=== PATIENT | female | born 1975 | race Caucasian/White ===

== ENCOUNTER 2017-01-26 07:57 | Observation (INO) | payer OTHER ==
[2017-01-26 07:58] VITALS: BMI 37.2
[2017-01-26 08:26] VITALS: BP 121/74; PULSE 73; RESP 18; TEMP 98.2; O2SAT 99
--- NOTE | 2017-01-26 08:44 | ED PDOC ---
HPI: Abdomen Time Seen by Provider: 01/26/17 08:26 Chief Complaint (Nursing): Abdominal Pain Chief Complaint (Provider): Abdominal Pain History Per: Patient History/Exam Limitations: no limitations Onset/Duration Of Symptoms: Hrs Current Symptoms Are (Timing): Still Present Severity: Moderate Pain Scale Rating Of: 8 Location Of Pain/Discomfort: Suprapubic Quality Of Discomfort: "Pain" Associated Symptoms: Fever, Urinary Symptoms. denies: Nausea, Vomiting Exacerbating Factors: None Alleviating Factors: None Additional Complaint(s): Patient is a 41 year old female who presents to ED for abdominal pain that began last night. Pain is described as lower abdominal, 8/10 and constant. Notes pain is associated with urinary frequency and fever Tmax 100.2 for 3 days. Patient reports she was last sexually active 1 month ago, denies vaginal discharge or bleeding. Past Medical History Reviewed: Historical Data, Nursing Documentation, Vital Signs Vital Signs: Last Vital Signs Temp 98.2 F 01/26/17 08:22 Pulse 73 01/26/17 08:22 Resp 18 01/26/17 08:22 BP 121/74 01/26/17 08:22 Pulse Ox 99 01/26/17 13:37 - Medical History PMH: Anemia, Pulmonary Embolism Denies: Chronic Kidney Disease - Surgical History Surgical History: No Surg Hx - Family History Family History: States: Unknown Family Hx - Living Arrangements Living Arrangements: With Family - Home Medications Home Medications: Ambulatory Orders Medication Instructions Recorded Aspirin [Low Dose Aspirin EC] 81 mg PO DAILY 07/12/16 Cholecalciferol [Vitamin D 1000 IU] 50,000 iu PO DAILY 07/12/16 Diclofenac Sodium [Voltaren] 100 gm TP 07/12/16 Ferrous Gluconate [Fergon] 324 mg PO 07/12/16 Folic Acid 1 mg PO DAILY 07/12/16 Docusate [Colace] 1 tab PO BID #40 cap 01/26/17 Naproxen [Naprosyn] 1 tab PO BID PRN #25 tab 01/26/17 - Allergies Allergies/Adverse Reactions: Allergies Allergy/AdvReac Type Severity Reaction Status Date / Time morphine Allergy DIZZINESS Verified 05/27/16 19:31 Review of Systems ROS Statement: Except As Marked, All Systems Reviewed And Found Negative Constitutional: Positive for: Fever, Chills. Negative for: Weakness Cardiovascular: Negative for: Chest Pain Respiratory: Negative for: Shortness of Breath Gastrointestinal: Positive for: Abdominal Pain. Negative for: Nausea, Vomiting , Diarrhea Genitourinary Female: Positive for: Frequency. Negative for: Dysuria, Hematuria Musculoskeletal: Positive for: Back Pain Skin: Negative for: Rash Neurological: Negative for: Weakness Physical Exam - Reviewed Nursing Documentation Reviewed: Yes Vital Signs Reviewed: Yes - Physical Exam Appears: Positive for: Non-toxic, No Acute Distress Skin: Positive for: Normal Color, Warm Eye Exam: Positive for: Normal appearance Neck: Positive for: Normal, Painless ROM Cardiovascular/Chest: Positive for: Regular Rate, Rhythm. Negative for: Murmur Respiratory: Positive for: Normal Breath Sounds. Negative for: Respiratory Distress Gastrointestinal/Abdominal: Positive for: Soft, Tenderness (LLQ). Negative for : Distended, Guarding, Rebound Back: Positive for: Normal Inspection, L CVA Tenderness. Negative for: R CVA Tenderness Extremity: Positive for: Normal ROM Neurologic/Psych: Positive for: Alert, Oriented - Laboratory Results Result Diagrams: 01/26/17 08:50 01/26/17 08:50 - ECG O2 Sat by Pulse Oximetry: 99 (RA) Pulse Ox Interpretation: Normal Medical Decision Making Medical Decision Making: Time: 0840 Initial impression: Abdominal pain r/o UTI Initial plan: -- Amylase -- CMP -- Lipase -- CBC -- NSF -- U/A Scribe Attestation: Documented by Marissa Robert acting as a scribe for Williams De Guzman MD MD Scribe Attestation: All medical record entries made by the Scribe were at my direction and personally dictated by me. I have reviewed the chart and agree that the record accurately reflects my personal performance of the history, physical exam, medical decision making, and the department course for this patient. I have also personally directed, reviewed, and agree with the discharge instructions and disposition. ED OBSERVATION Discharge: Yes Date of observation admission: 01/26/17 Time of observation admission: 10:02 - Observation admission statement Patient is being placed in observation because:: Patient is still symptomatic. - Goals of Observation Goals of observation are:: Improvement of symptoms. - Progress Note Progress Note: 01/26/17 12:53 Patient has returned from CT scan. Awaiting reading by radiology. 01/26/17 13:36 CT shows b/l ovarian cysts. Will d/c on nsaids Disposition - Clinical Impression Clinical Impression: Ovarian cyst - Patient ED Disposition Is Patient to be Admitted: No Counseled Patient/Family Regarding: Studies Performed, Diagnosis, Need For Followup, Rx Given - Disposition Disposition Time: 13:31 Condition: IMPROVED
[2017-01-26] MEDS ORDERED: Sodium Chloride 0.9% 1,000 ML IV SCH (08:45)
[2017-01-26 09:10] LABS: BASO % 0.6 % (0.0-2.0); EOS # 0.1 K/uL (0.0-0.7); EOS % 1.2 % (0.0-4.0); HEMATOCRIT 34.1 % (34.0-47.0); LYMPH # 1.6 K/uL (1.0-4.3); LYMPH % 27.1 % (20.0-40.0); MEAN CELL VOLUME 81.2 fl (81.0-99.0); MEAN CORPUSCULAR HGB CONC 33.2 g/dL (33.0-37.0); MEAN PLATELET VOLUME 9.4 fl (7.2-11.7); MONO # 0.5 K/uL (0.0-0.8); MONO % 9.2 % (0.0-10.0); NEUT # 3.7 K/uL (1.8-7.0); NEUT % 61.9 % (50.0-75.0); RED CELL DISTRIBUTION WIDTH 15.3 % (11.5-14.5); WHITE BLOOD COUNT 5.9 K/uL (4.8-10.8)
[2017-01-26 09:12] LABS: RBC URINE 2 /hpf (0-3); URINE BILIRUBIN NEGATIVE (NEGATIVE); URINE BLOOD NEGATIVE (NEGATIVE); URINE COLOR STRAW (YELLOW); URINE GLUCOSE (UA) NEG (Normal); URINE KETONE NEGATIVE (NEGATIVE); URINE LEUKOCYTE ESTERASE NEG Leu/uL (Negative); URINE PROTEIN NEGATIVE (NEGATIVE); URINE UROBILINOGEN 0.2-1.0 mg/dL (0.2-1.0); WBC URINE < 1 /hpf (0-5)
[2017-01-26 09:20] LABS: ALB/GLOB RATIO 1.4 (1.0-2.1); ALKALINE PHOSPHATASE 41 U/L (38-126); ALT/SGPT 32 U/L (9-52); AMYLASE 63 U/L (30-110); AST/SGOT 33 U/L (14-36); BILIRUBIN,TOTAL 0.6 mg/dl (0.2-1.3); BLOOD UREA NITROGEN 14 mg/dl (7-17); CALCIUM 9.4 mg/dL (8.4-10.2); CARBON DIOXIDE 26 mmol/L (22-30); CHLORIDE 106 mmol/L (98-107); GFR AFRICAN-AMERICAN > 60; GLUCOSE,RANDOM 85 mg/dL (65-105); LIPASE 105 U/L (23-300); POTASSIUM 4.3 MMOL/L (3.6-5.0); SODIUM 140 mmol/l (132-148); TOTAL PROTEIN 6.9 G/DL (6.3-8.2)
[2017-01-26] MEDS ORDERED: Iohexol 240 (50 ml) PO ONE (10:05)
--- NOTE | 2017-01-26 13:11 | CT ---
PROCEDURE: CT Abdomen and Pelvis with oral and IV contrast. HISTORY: Patient is c/o abdominal pain COMPARISON: CT abdomen and pelvis without oral or IV contrast performed 04/22/14 TECHNIQUE: Contiguous axial images of the abdomen and pelvis. Oral and IV contrast was administered. Coronal and Sagittal reformats generated and reviewed. Contrast dose: 95 mL Omnipaque 300 Radiation dose: Total exam DLP = 1088.52 mGy-cm. This CT exam was performed using one or more of the following dose reduction techniques: Automated exposure control, adjustment of the mA and/or kV according to patient size, and/or use of iterative reconstruction technique. FINDINGS: LOWER THORAX: No visible consolidation, pleural effusion, or pneumothorax. Punctate calcified granuloma, right lung base. LIVER: Hypoattenuation of the liver compatible with hepatic steatosis. GALLBLADDER AND BILE DUCTS: Unremarkable. PANCREAS: Unremarkable. SPLEEN: Unremarkable. ADRENALS: Unremarkable. KIDNEYS AND URETERS: The kidneys enhance symmetrically. No hydronephrosis or obstructing renal calculus. BLADDER: The urinary bladder appears unremarkable. REPRODUCTIVE: Uterus is present. Probable bilateral ovarian cysts. APPENDIX: The appendix appears within normal limits of caliber. No secondary signs of acute appendicitis. BOWEL: The stomach is nondistended. The bowel loops appear within normal limits of caliber without evidence of intestinal obstruction. Mild to moderate constipation. PERITONEUM: No significant free fluid. No definite free air. LYMPH NODES: No bulky lymphadenopathy identified. VASCULATURE: No aortic aneurysm. BONES: No acute osseous abnormality is detected. OTHER FINDINGS: None. IMPRESSION: Hepatic steatosis. Mild to moderate constipation. Probable small bilateral ovarian cysts. This may be further assessed with pelvic ultrasound if indicated.
== END 2017-01-26 13:46 | disposition home or self-care (01) ==
LOC: SUPCPDRO 07:57 → H.ER 07:57 → H.EROBSV 10:10
PROVIDERS: ADMIT Emergency Medicine; ATTEND Emergency Medicine
DX: N83.202 Unspecified ovarian cyst, left side (principal); N83.201 Unspecified ovarian cyst, right side; Z86.711 Personal history of pulmonary embolism; Z79.82 Long term (current) use of aspirin; Z88.6 Allergy status to analgesic agent

== ENCOUNTER 2017-04-06 07:53 | Inpatient (IN) | payer OTHER ==
[2017-04-06 07:53] VITALS: BMI 37.2
[2017-04-06] MEDS ORDERED: Iohexol 300 100 ML IJ ONE (08:48)
[2017-04-06] MEDS ORDERED: Sodium Chloride 0.9% 50 ML IV ONE (08:49)
[2017-04-06] MEDS ORDERED: Alum-Mag Hydrox-Simethicone Susp (30 mL) PO ONE (08:52)
--- NOTE | 2017-04-06 08:53 | ED PDOC ---
HPI: Chest Pain Time Seen by Provider: 04/06/17 07:57 Chief Complaint (Nursing): Chest Pain Chief Complaint (Provider): Chest Pain History Per: Patient History/Exam Limitations: no limitations Onset/Duration Of Symptoms: Days (x2 days) Current Symptoms Are (Timing): Still Present Additional Complaint(s): 41 y/o female with a past medical history of pulmonary embolism, hypercholesterolemia, and diabetes (pre-diabetic) who presents to the emergency department with a complaint of a constant discomfort of chest pain x2 days. Describes the sensation as something being "stuck" inside her chest. Reports pain increases when pressing on her chest and swallowing. Admits she is able swallow but associated with pain when she eats, drinks, or breathes. Denies cough, fever, vomiting, choking, burning sensation or pain of the throat, or leg pain. Of note, patient is currently taking Aspirin 81 mg daily after after a varicose surgery removal which caused coagulates in her lungs. PMD: Dr. Ten Walters MD Past Medical History Reviewed: Historical Data, Nursing Documentation, Vital Signs Vital Signs: Last Vital Signs Temp 98.0 F 04/07/17 13:05 Pulse 74 04/07/17 13:05 Resp 20 04/07/17 13:05 BP 101/62 04/07/17 13:05 Pulse Ox 99 04/07/17 13:05 - Medical History PMH: Anemia, Diabetes ("Pre-Diabetic" (Not taking medications)), Pulmonary Embolism Denies: Chronic Kidney Disease - Surgical History Other surgeries: Removal of varicose veins - Family History Family History: States: Unknown Family Hx - Home Medications Home Medications: Ambulatory Orders Medication Instructions Recorded Aspirin [Low Dose Aspirin EC] 81 mg PO DAILY 07/12/16 Ergocalciferol (Vitamin D2) 50,000 unit PO FR 04/06/17 [Vitamin D2] - Allergies Allergies/Adverse Reactions: Allergies Allergy/AdvReac Type Severity Reaction Status Date / Time morphine Allergy DIZZINESS Verified 05/27/16 19:31 VERONICA Risk Score for UA/NSTEMI - VERONICA Risk Score Age > 64: NO 3 or more CAD Risk Factors: NO Known CAD (Stenosis greater than 50%): NO Aspirin use in past 7 days: NO Severe Angina: NO EKG ST changes greater than 0.5mm: NO Positive Cardiac Marker: NO VERONICA Score: 0 Risk %: 5% Wells Criteria for PE - Wells Criteria for Pulmonary Embolism Clinical Signs and Symptoms of DVT: No P.E is #1 Diagnosis, or Equally Likely: No Heart Rate >100: No Immobilization at least 3 days;Surgery previous 4 weeks: No Previous, objectively diagnosed PE or DVT: No Hemoptysis: No Malignancy w/treatment within 6 months, or palliative: No Total Score: 0 Review of Systems ROS Statement: Except As Marked, All Systems Reviewed And Found Negative Constitutional: Negative for: Fever ENT: Positive for: Other (Able to swallow but associated with pain). Negative for: Throat Pain (or burning sensation. No choking.) Cardiovascular: Positive for: Chest Pain (Hurts when chest wall in pressed, with swallowing, and breaths. ) Respiratory: Negative for: Cough Gastrointestinal: Negative for: Vomiting Physical Exam - Reviewed Nursing Documentation Reviewed: Yes Vital Signs Reviewed: Yes - Physical Exam Appears: Positive for: Non-toxic, No Acute Distress Head Exam: Positive for: ATRAUMATIC, NORMAL INSPECTION, NORMOCEPHALIC Skin: Positive for: Normal Color, Warm, Dry ENT: Positive for: Normal ENT Inspection. Negative for: Pharyngeal Erythema Neck: Positive for: Normal, Supple Cardiovascular/Chest: Positive for: Regular Rate, Rhythm, Other (Chest wall tenderness along the lower sternal region). Negative for: Chest Non Tender, Murmur Respiratory: Positive for: Normal Breath Sounds. Negative for: Accessory Muscle Use, Respiratory Distress Gastrointestinal/Abdominal: Positive for: Normal Exam, Soft. Negative for: Tenderness Extremity: Positive for: Normal ROM. Negative for: Pedal Edema Neurologic/Psych: Positive for: Alert, Oriented - Laboratory Results Result Diagrams: 04/06/17 08:49 04/06/17 08:49 - ECG ECG Rhythm: Positive for: Normal QRS, Normal ST Segment, Sinus Rhythm (Rate of 67 bpm). Negative for: ST/T Changes O2 Sat by Pulse Oximetry: 100 (RA) Pulse Ox Interpretation: Normal Medical Decision Making Medical Decision Making: Time: 08:30 Initial impression: Chest pain. Differential includes ACS and PE. Most likely esophagitis from aspirin use. Initial plan: --Angio Chest PE CT --EKG --BMP --Troponin I --CBC w. diff --PTT and Prothrombin --Reevaluation Time: 08:52 --Aluminum Hydroxide 30 ml PO --Pepcid 20 mg IVP --Lidocaine 2% 15 ml PO Time: 11:18 --Chest CT FINDINGS: PULMONARY ARTERIES: The study is limited due to suboptimal a opacification of the pulmonary circulation. Visualized pulmonary trunk, right and left main, lobar, segmental and proximal subsegmental branches of the pulmonary arteries are well opacified with no definitive filling defects seen to suggest acute pulmonary embolus. Pulmonary trunk measures approximately 2.4 cm. AORTA: No acute findings. No thoracic aortic aneurysm ; ascending thoracic aorta measures approximately 2.83 cm and descending thoracic aorta measures approximately 2.47 cm. . LUNGS: Unremarkable. No nodule, mass or pulmonary consolidation. Central airways are midline and patent. No definitive endobronchial lesion seen. PLEURAL SPACES: Unremarkable. No effusion or pneuomothorax. HEART: Heart mildly enlarged. No significant pericardial effusion. LYMPH NODES: No lymphadenopathy. BONES, CHEST WALL: Unremarkable. No fracture or destructive lesion OTHER FINDINGS: Unremarkable. IMPRESSION: No evidence of acute central pulmonary embolus seen on this limited study as above. Mild cardiomegaly. Time: 12:19 Admit to hospital routine: On Observation in Telemetry for Chest pain after discussed with Dr. Ten Walters MD Scribe Attestation: Documented by Deanna Millard, acting as a scribe for Chandler Garcia MD. Provider Scribe Attestation: All medical record entries made by the Scribe were at my direction and personally dictated by me. I have reviewed the chart and agree that the record accurately reflects my personal performance of the history, physical exam, medical decision making, and the department course for this patient. I have also personally directed, reviewed, and agree with the discharge instructions and disposition. Disposition - Clinical Impression Clinical Impression: Chest pain - Patient ED Disposition Is Patient to be Admitted: Yes Discussed With : Ten Walters Doctor Will See Patient In The: Hospital Counseled Patient/Family Regarding: Studies Performed, Diagnosis - Disposition Disposition Time: 12:19 Condition: FAIR - Pt Status Changed To: Hospital Disposition Of: Observation - POA Present On Arrival: None
[2017-04-06] MEDS ORDERED: Iodixanol 320 MG/ML 100 ML BOTTLE IV ONE (08:54)
[2017-04-06] MEDS ORDERED: Alum-Mag Hydrox-Simethicone Susp (30 mL) ONE (09:15)
[2017-04-06 09:28] LABS: BASO % 0.7 % (0.0-2.0); EOS # 0.1 K/uL (0.0-0.7); HEMATOCRIT 35.5 % (34.0-47.0); LYMPH # 1.8 K/uL (1.0-4.3); LYMPH % 28.4 % (20.0-40.0); MEAN CELL VOLUME 81.8 fl (81.0-99.0); MEAN CORPUSCULAR HEMOGLOBIN 26.3 pg (27.0-31.0); MEAN CORPUSCULAR HGB CONC 32.1 g/dL (33.0-37.0); MEAN PLATELET VOLUME 9.4 fl (7.2-11.7); MONO # 0.5 K/uL (0.0-0.8); MONO % 8.4 % (0.0-10.0); NEUT # 3.8 K/uL (1.8-7.0); NEUT % 60.5 % (50.0-75.0); NRBC % 0.1 % (0.0-0.0); RED CELL DISTRIBUTION WIDTH 15.6 % (11.5-14.5); WHITE BLOOD COUNT 6.2 K/uL (4.8-10.8)
[2017-04-06 09:37] LABS: BLOOD UREA NITROGEN 9 mg/dl (7-17); CALCIUM 8.9 mg/dL (8.4-10.2); CARBON DIOXIDE 22 mmol/L (22-30); CHLORIDE 109 mmol/L (98-107); GFR AFRICAN-AMERICAN > 60; GLUCOSE,RANDOM 90 mg/dL (65-105); POTASSIUM 4.7 MMOL/L (3.6-5.0); SODIUM 140 mmol/l (132-148)
[2017-04-06 09:49] LABS: PARTIAL THROMBOPLASTIN TIME 28.9 Seconds (25.6-37.1)
--- NOTE | 2017-04-06 11:40 | CT ---
PROCEDURE: CT Chest with contrast (Pulmonary Angiogram) HISTORY: chest pain COMPARISON: None available. TECHNIQUE: Contiguous helical/transaxial computed tomography images were obtained of the chest in the pulmonary arterial phase of enhancement. Coronal and sagittal reformatted images were created and reviewed. Intravenous contrast dose: 95 cc Visipaque 320 contrast material Radiation dose: Total exam DLP = 384.49 mGy-cm. This CT exam was performed using one or more of the following dose reduction techniques: Automated exposure control, adjustment of the mA and/or kV according to patient size, and/or use of iterative reconstruction technique. . FINDINGS: PULMONARY ARTERIES: The study is limited due to suboptimal a opacification of the pulmonary circulation. Visualized pulmonary trunk, right and left main, lobar, segmental and proximal subsegmental branches of the pulmonary arteries are well opacified with no definitive filling defects seen to suggest acute pulmonary embolus. Pulmonary trunk measures approximately 2.4 cm. AORTA: No acute findings. No thoracic aortic aneurysm ; ascending thoracic aorta measures approximately 2.83 cm and descending thoracic aorta measures approximately 2.47 cm. . LUNGS: Unremarkable. No nodule, mass or pulmonary consolidation. Central airways are midline and patent. No definitive endobronchial lesion seen. PLEURAL SPACES: Unremarkable. No effusion or pneuomothorax. HEART: Heart mildly enlarged. No significant pericardial effusion. LYMPH NODES: No lymphadenopathy. BONES, CHEST WALL: Unremarkable. No fracture or destructive lesion OTHER FINDINGS: Unremarkable. IMPRESSION: No evidence of acute central pulmonary embolus seen on this limited study as above. Mild cardiomegaly.
[2017-04-06] MEDS: Enoxaparin 40 mg Syringe SC SCH (16:10)
[2017-04-06] MEDS: Ergocalciferol 50,000 Intl Units Cap PO SCH ×2 (17:10→17:15)
--- NOTE | 2017-04-06 18:20 | CP.PCM.CON ---
History of Present Illness - History of Present Illness History of Present Illness: Consultation for evaluation of chest pain HPI: 41-year-old female with past medical history significant for prediabetes hyperlipidemia pulmonary embolism who presented to the ER with complaints of substernal sharp epigastric discomfort described as sensation of something stuck in her throat. According to the patient she described the pain got worse after swallowing. Patient was able to eat and drink. Denied any cough fevers nausea vomiting symptoms are worse on swallowing as if she had a heartburn sensation. Denies having any dyspnea associated diaphoresis or shortness of breath. Patient has been on baby aspirin after varicose vein removal. She had undergone a stress test and echocardiogram recently in the last year by Dr. Cueto who is her promotion writer. Both testing showed normal results. Review of Systems - Review of Systems All systems: reviewed and no additional remarkable complaints except - Constitutional Constitutional: As Per HPI - EENT Eyes: As Per HPI Ears: As Per HPI Nose/Mouth/Throat: As Per HPI - Breasts Breasts: As Per HPI - Cardiovascular Cardiovascular: As Per HPI, Chest Pain - Respiratory Respiratory: As Per HPI - Gastrointestinal Gastrointestinal: As Per HPI, Dyspepsia, Dysphagia - Genitourinary Genitourinary: As Per HPI - Menstruation Menstruation: As Per HPI - Musculoskeletal Musculoskeletal: As Per HPI - Integumentary Integumentary: As Per HPI - Neurological Neurological: As Per HPI - Psychiatric Psychiatric: As Per HPI - Endocrine Endocrine: As Per HPI - Hematologic/Lymphatic Hematologic: As Per HPI Past Patient History - Infectious Disease Hx of Infectious Diseases: None - Past Medical History & Family History Past Medical History?: No Pertinent Family History: +ve for HTN - Past Social History Smoking Status: Never Smoked - CARDIAC Hx Cardiac Disorders: Yes - PULMONARY Hx Pulmonary Embolism: Yes - NEUROLOGICAL Hx Neurological Disorder: No - HEENT Hx HEENT Problems: No - RENAL Hx Chronic Kidney Disease: No - ENDOCRINE/METABOLIC Hx Endocrine Disorders: No - HEMATOLOGICAL/ONCOLOGICAL Hx Anemia: Yes - INTEGUMENTARY Hx Dermatological Problems: No - MUSCULOSKELETAL/RHEUMATOLOGICAL Hx Falls: No - GASTROINTESTINAL Other/Comment: gastritis - PSYCHIATRIC Hx Substance Use: No - SURGICAL HISTORY Hx Section: Yes (x 3) - ANESTHESIA Hx Anesthesia: Yes Hx Anesthesia Reactions: No Hx Malignant Hyperthermia: No Meds Allergies/Adverse Reactions: Allergies Allergy/AdvReac Type Severity Reaction Status Date / Time morphine Allergy DIZZINESS Verified 05/27/16 19:31 - Medications Medications: Current Medications Enoxaparin Sodium (Lovenox) 40 mg SC DAILY JOANNE PRN Reason: Protocol Last Admin: 04/06/17 16:10 Dose: 40 mg Ergocalciferol (Drisdol 50,000 Intl Units Cap) 1 cap PO FR [facility] Last Admin: 04/06/17 17:15 Dose: Not Given Physical Exam - Constitutional Appears: Well - Head Exam Head Exam: ATRAUMATIC, NORMAL INSPECTION, NORMOCEPHALIC - Eye Exam Eye Exam: EOMI, Normal appearance, PERRL Pupil Exam: NORMAL ACCOMODATION, PERRL - ENT Exam ENT Exam: Mucous Membranes Moist, Normal Exam - Neck Exam Neck exam: Positive for: Normal Inspection - Respiratory Exam Respiratory Exam: Clear to Auscultation Bilateral, NORMAL BREATHING PATTERN - Cardiovascular Exam Cardiovascular Exam: REGULAR RHYTHM, RRR, +S1, +S2, Systolic Murmur - GI/Abdominal Exam GI & Abdominal Exam: Normal Bowel Sounds, Soft. absent: Tenderness - Extremities Exam Extremities exam: Positive for: normal inspection - Back Exam Back exam: NORMAL INSPECTION - Neurological Exam Neurological exam: Alert, CN II-XII Intact, Oriented x3, Reflexes Normal - Psychiatric Exam Psychiatric exam: Normal Affect, Normal Mood - Skin Skin Exam: Dry, Intact, Normal Color, Warm Results - Vital Signs Recent Vital Signs: Last Vital Signs Temp 98.7 F 04/06/17 16:23 Pulse 67 04/06/17 16:23 Resp 16 04/06/17 16:57 BP 108/72 04/06/17 16:23 Pulse Ox 99 04/06/17 16:23 - Labs Result Diagrams: 04/06/17 08:49 04/06/17 08:49 Assessment & Plan (1) Chest pain Assessment and Plan: etiology most likely GI related CHIARA serial TnI x 3 no further cardiac w/u needed GI evaluation Status: Acute (2) EKG abnormalities Status: Chronic
[2017-04-07 08:14] LABS: CHOLESTEROL 144 mg/dL (0-199)
--- NOTE | 2017-04-07 09:51 | CARD ---
APPROVED REPORT EKG Measurement Heart [id number] <Conclusion> SUSPECT ARM LEAD REVERSAL REPEAT with appropriate arm lead attachment Normal sinus rhythm Right axis deviation Abnormal ECG
--- NOTE | 2017-04-07 10:10 | CARD ---
APPROVED REPORT EXAM: Two-dimensional and M-mode echocardiogram with Doppler and color Doppler. Other Information Quality : GoodRhythm : NSR INDICATION Chest Pain 2D DIMENSIONS IVSd0.72 (0.7-1.1cm)LVDd4.64 (3.9-5.9cm) LVOT Diameter1.92 (1.8-2.4cm)PWd0.93 (0.7-1.1cm) IVSs1.04 (0.8-1.2cm)LVDs3.18 (2.5-4.0cm) FS (%) 31.6 %PWs1.12 (0.8-1.2cm) M-Mode DIMENSIONS Left Atrium (MM)3.56 (2.5-4.0cm)IVSd0.83 (0.7-1.1cm) Aortic Root2.84 (2.2-3.7cm)LVDd5.27 (4.0-5.6cm) Aortic Cusp Exc.1.85 (1.5-2.0cm)PWd0.83 (0.7-1.1cm) IVSs1.30 cmFS (%) 42 % LVDs3.06 (2.0-3.8cm)PWs1.38 cm Mitral Valve MV E Phwjoelg15.9cm/sMV DECEL [id number] A Xqrwxqoo64.0cm/s MV SQB57bjH/A ratio1.2MVA (PHT)5.91cm2 TDI Lateral E' Peak V13.20cm/sMedial E' Peak V8.96cm/sE/Lateral E'4.5 E/Medial E'6.6 Pulmonary Valve PV Peak Whvavmvy449.5cm/s Tricuspid Valve TR Peak Yuxsgsnj583cs/sRAP [id number] Peak Gr.12mmHg [id number] LEFT VENTRICLE The left ventricle is normal size. There is normal left ventricular wall thickness. Left ventricle systolic function is normal. The Ejection Fraction is 60-65%. There is normal LV segmental wall motion. The left ventricular diastolic function is normal. RIGHT VENTRICLE The right ventricle is normal size. There is normal right ventricular wall thickness. The right ventricular systolic function is normal. ATRIA The left atrium size is normal. The right atrium size is normal. AORTIC VALVE The aortic valve is normal in structure and function. No aortic regurgitation is present. There is no aortic valvular stenosis. MITRAL VALVE The mitral valve is normal in structure and function. There is no evidence of mitral valve prolapse. There is no mitral valve stenosis. There is no mitral valve regurgitation noted. TRICUSPID VALVE The tricuspid valve is normal in structure. There is trace to mild tricuspid regurgitation. Right ventricular systolic pressure is estimated at 22 mmHg. There is no pulmonary hypertension. PULMONIC VALVE The pulmonary valve is normal in structure and function. There is no pulmonic valvular regurgitation. GREAT VESSELS The aortic root is normal in size. The IVC is normal in size and collapses >50% with inspiration. PERICARDIAL EFFUSION The pericardium appears normal. <Conclusion> The left ventricle is normal size. There is normal left ventricular wall thickness. There is normal LV segmental wall motion. Left ventricle systolic function is normal. The Ejection Fraction is 60-65%. The left ventricular diastolic function is normal.
[2017-04-07] MEDS: Benzocaine/Menthol (Cepacol) Lozenge PO PRN (10:43)
[2017-04-07] MEDS: Enoxaparin 40 mg Syringe SC SCH (10:43)
--- NOTE | 2017-04-07 12:08 | CARD ---
APPROVED REPORT EKG Measurement Heart [id number] <Conclusion> Normal sinus rhythm Normal ECG
--- NOTE | 2017-04-07 13:42 | CP.PCM.CON ---
<Sonya Sena - Last Filed: 04/07/17 13:35> History of Present Illness - History of Present Illness History of Present Illness: Gastroenterology Fellow/PGY5 Consult Note 41 year old female with history of Pre-Diabetes, Hyperlipidemia, Obesity, prior varicose vein stripping complicated by B/L PE 08/2014 on aspirin presenting with chest pain. Patient notes since sudden onset of epigastric pain and associated painful swallowing to solids and liquids since Sunday evening. She notes symptoms are not similar to prior chest pain 06/2016 with negative cardiac workup including Holter monitor, ECHO, and stress test. She denies associated nausea, vomiting, hematemesis, heartburn, indigestion, acid reflux, bloating, abdominal pain, distension, diarrhea, constipation, melena, hematochezia, or unintentional weight loss. No prior EGD or colonoscopy. Family- denies stomach cancer, colon cancer Social- denies tobacco, alcohol, illicit drug use Surgery-varicose vein stripping 08/2014, Review of Systems - Review of Systems Review of Systems: 12-point review of systems negative except for as above Past Patient History - Infectious Disease Hx of Infectious Diseases: None - Past Medical History & Family History Past Medical History?: No - Past Social History Smoking Status: Never Smoked - CARDIAC Hx Cardiac Disorders: Yes - PULMONARY Hx Pulmonary Embolism: Yes - NEUROLOGICAL Hx Neurological Disorder: No - HEENT Hx HEENT Problems: No - RENAL Hx Chronic Kidney Disease: No - ENDOCRINE/METABOLIC Hx Endocrine Disorders: No - HEMATOLOGICAL/ONCOLOGICAL Hx Anemia: Yes - INTEGUMENTARY Hx Dermatological Problems: No - MUSCULOSKELETAL/RHEUMATOLOGICAL Hx Falls: No - GASTROINTESTINAL Other/Comment: gastritis - PSYCHIATRIC Hx Substance Use: No - SURGICAL HISTORY Hx Section: Yes (x 3) - ANESTHESIA Hx Anesthesia: Yes Hx Anesthesia Reactions: No Hx Malignant Hyperthermia: No Meds Allergies/Adverse Reactions: Allergies Allergy/AdvReac Type Severity Reaction Status Date / Time morphine Allergy DIZZINESS Verified 05/27/16 19:31 - Medications Medications: Current Medications Benzocaine/Menthol (Cepacol Sore Throat) 1 mir PO Q3 PRN PRN Reason: Sore Throat Last Admin: 04/07/17 10:43 Dose: 1 mir Enoxaparin Sodium (Lovenox) 40 mg SC DAILY [facility]NE PRN Reason: Protocol Last Admin: 04/07/17 10:43 Dose: 40 mg Ergocalciferol (Drisdol 50,000 Intl Units Cap) 1 cap PO FR [facility]AN[facility] Last Admin: 04/06/17 17:15 Dose: Not Given Ketorolac Tromethamine (Toradol) 15 mg IVP Q6 PRN PRN Reason: Pain, moderate (4-7) Last Admin: 04/06/17 20:03 Dose: 15 mg Physical Exam - Constitutional Appears: Non-toxic, No Acute Distress - Head Exam Head Exam: ATRAUMATIC, NORMOCEPHALIC - Eye Exam Eye Exam: EOMI, PERRL Pupil Exam: PERRL. absent: Miosis, Mydriatic - ENT Exam ENT Exam: Mucous Membranes Moist, Normal Oropharynx - Neck Exam Neck exam: Positive for: Full Rom, Normal Inspection - Respiratory Exam Respiratory Exam: Clear to Auscultation Bilateral. absent: Rales, Rhonchi, Wheezes - Cardiovascular Exam Cardiovascular Exam: RRR, +S1, +S2. absent: Gallop, Rubs - GI/Abdominal Exam GI & Abdominal Exam: Normal Bowel Sounds, Soft. absent: Distended, Firm, Guarding, Organomegaly, Rebound, Rigid, Tenderness - Extremities Exam Extremities exam: Positive for: normal inspection. Negative for: pedal edema - Neurological Exam Neurological exam: Alert - Psychiatric Exam Psychiatric exam: Normal Affect, Normal Mood - Skin Skin Exam: Dry, Intact, Normal Color, Warm Results - Vital Signs Recent Vital Signs: Last Vital Signs Temp 98.0 F 04/07/17 13:05 Pulse 74 04/07/17 13:05 Resp 20 04/07/17 13:05 BP 101/62 04/07/17 13:05 Pulse Ox 99 04/07/17 13:05 - Labs Result Diagrams: 04/06/17 08:49 04/06/17 08:49 Labs: Laboratory Results - last 24 hr 04/06/17 04/07/17 23:30 06:00 Troponin I < 0.0120 Triglycerides 70 Cholesterol 144 LDL Cholesterol Direct 92 HDL Cholesterol 34 Assessment & Plan - Assessment and Plan (Free Text) Assessment: 41 year old female with history of Pre-Diabetes, Hyperlipidemia, Obesity, prior varicose vein stripping complicated by B/L PE 08/2014 on aspirin presenting with chest pain. Active treatment of odynophagia to solids and liquids. No prior EGD or colonoscopy. Plan: >cardiac evaluation- negative prior cardiac workup >pending ECHO >CT chest- negative for PE >tolerating clear liquids without dysphagia >regular diet as tolerated >plan for EGD Sunday for further evaluation >will follow clinical course <Ewa Gonzalez MD - Last Filed: 04/07/17 18:15> Meds - Medications Medications: Current Medications Benzocaine/Menthol (Cepacol Sore Throat) 1 mir PO Q3 PRN PRN Reason: Sore Throat Last Admin: 04/07/17 10:43 Dose: 1 mir Enoxaparin Sodium (Lovenox) 40 mg SC DAILY JOANNE PRN Reason: Protocol Last Admin: 04/07/17 10:43 Dose: 40 mg Ergocalciferol (Drisdol 50,000 Intl Units Cap) 1 cap PO FR [facility] Last Admin: 04/06/17 17:15 Dose: Not Given Ketorolac Tromethamine (Toradol) 15 mg IVP Q6 PRN PRN Reason: Pain, moderate (4-7) Last Admin: 04/06/17 20:03 Dose: 15 mg Results - Vital Signs Recent Vital Signs: Last Vital Signs Temp 100.2 F H 04/07/17 17:40 Pulse 92 H 04/07/17 17:40 Resp 20 04/07/17 17:40 BP 133/77 04/07/17 17:40 Pulse Ox 98 04/07/17 17:40 - Labs Result Diagrams: 04/06/17 08:49 04/06/17 08:49 Labs: Laboratory Results - last 24 hr 04/06/17 04/07/17 23:30 06:00 Troponin I < 0.0120 Triglycerides 70 Cholesterol 144 LDL Cholesterol Direct 92 HDL Cholesterol 34 Attending/Attestation - Attestation I have personally seen and examined this patient.: Yes I have fully participated in the care of the patient.: Yes I have reviewed all pertinent clinical information: Yes Notes (Text): 04/07/17 18:14 Patient seen with GI fellow on rounds. Agree with above findings. This is a 41 year old female with history of Pre-Diabetes, Hyperlipidemia, Obesity, prior varicose vein stripping complicated by B/L PE 08/2014 on aspirin presenting with chest pain and odynophagia to solids and liquids. No prior EGD or colonoscopy. Cardiac evaluation negative. Likely motility vs mucosal pathology of upper GI tract. Will schedule EGD on Sunday. Continue PPi daily and clear liquids. Barium esophagogram to be ordered
--- NOTE | 2017-04-07 23:50 | CP.PCM.PN ---
Subjective - Date & Time of Evaluation Date of Evaluation: 04/07/17 Time of Evaluation: 16:00 - Subjective Subjective: denies CP mild epigastric discomfort Objective - Vital Signs/Intake and Output Vital Signs (last 24 hours): Temp Pulse Resp BP Pulse Ox 98 F 93 H 20 113/72 98 04/07/17 21:34 04/07/17 21:34 04/07/17 21:34 04/07/17 21:34 04/07/17 21:34 Intake and Output: 04/07/17 04/08/17 18:59 06:59 Intake Total 1250 Balance 1250 - Medications Medications: Current Medications Benzocaine/Menthol (Cepacol Sore Throat) 1 mir PO Q3 PRN PRN Reason: Sore Throat Last Admin: 04/07/17 10:43 Dose: 1 mir Enoxaparin Sodium (Lovenox) 40 mg SC DAILY JOANNE PRN Reason: Protocol Last Admin: 04/07/17 10:43 Dose: 40 mg Ergocalciferol (Drisdol 50,000 Intl Units Cap) 1 cap PO FR [facility] Last Admin: 04/06/17 17:15 Dose: Not Given Ketorolac Tromethamine (Toradol) 15 mg IVP Q6 PRN PRN Reason: Pain, moderate (4-7) Last Admin: 04/06/17 20:03 Dose: 15 mg - Labs Labs: PT 11.6 Seconds (9.8-13.1) 04/06/17 08:49 INR 1.1 (0.9-1.2) 04/06/17 08:49 APTT 28.9 Seconds (25.6-37.1) 04/06/17 08:49 - Constitutional Appears: Well - Head Exam Head Exam: ATRAUMATIC, NORMAL INSPECTION, NORMOCEPHALIC - Eye Exam Eye Exam: EOMI, Normal appearance, PERRL Pupil Exam: NORMAL ACCOMODATION, PERRL - ENT Exam ENT Exam: Mucous Membranes Moist, Normal Exam - Neck Exam Neck Exam: Full ROM, Normal Inspection. absent: Lymphadenopathy - Respiratory Exam Respiratory Exam: Clear to Ausculation Bilateral, NORMAL BREATHING PATTERN - Cardiovascular Exam Cardiovascular Exam: REGULAR RHYTHM, +S1, +S2, Murmur - GI/Abdominal Exam GI & Abdominal Exam: Soft, Normal Bowel Sounds. absent: Tenderness - Extremities Exam Extremities Exam: Full ROM, Normal Capillary Refill, Normal Inspection. absent : Joint Swelling, Pedal Edema - Back Exam Back Exam: NORMAL INSPECTION - Neurological Exam Neurological Exam: Alert, Awake, CN II-XII Intact, Normal Gait, Oriented x3 - Psychiatric Exam Psychiatric exam: Normal Affect, Normal Mood - Skin Skin Exam: Dry, Intact, Normal Color, Warm Assessment and Plan (1) Chest pain Assessment & Plan: 2' to Esophagitis Plan for EGD on sunday Echo normal LVEF no further cardiac f/u needed at this time Status: Acute (2) EKG abnormalities Assessment & Plan: ok to proceed with EGD Status: Chronic
[2017-04-08] MEDS: Benzocaine/Menthol (Cepacol) Lozenge PO PRN ×2 (09:21→21:33)
[2017-04-08] MEDS: Enoxaparin 40 mg Syringe SC SCH (09:21)
--- NOTE | 2017-04-08 11:28 | PN ---
DATE: 04/08/2017 SUBJECTIVE: The patient was seen and examined. Interim events noted. Consult noted and appreciated. Cardiology and Gastroenterology interventions noted and appreciated. The patient remains in Progressive Care Unit on bus driver/monitor. The patient still complains of chest discomfort and pain, but no shortness of breath or chest pain. PHYSICAL EXAMINATION GENERAL: The patient is in no acute distress. VITAL SIGNS: Stable. HEART: S1 and S2 normal and regular. LUNGS: Good bilateral air entry. ABDOMEN: Soft and nontender. No organomegaly. No fluid. Bowel sounds are plus. EXTREMITIES: No edema. No calf swelling or tenderness. No acute ischemia. CENTRAL NERVOUS SYSTEM: Essentially unchanged. DIAGNOSTIC DATA: Available diagnostic data reviewed. Telemetry monitoring does not show any significant arrhythmia. The patient's general medication condition is stable. The patient needs possible endoscopy tomorrow. PLAN: As ordered. Case and plan discussed with the patient. Ten Walters MD
--- NOTE | 2017-04-08 12:29 | CP.PCM.PN ---
Subjective - Date & Time of Evaluation Date of Evaluation: 04/08/17 Time of Evaluation: 12:00 - Subjective Subjective: Patient seen at bedside. Complains of sub sternal pain during swallowing. Tolerated some clear liquid diet. Denies nausea, vomiting. Objective - Vital Signs/Intake and Output Vital Signs (last 24 hours): Temp Pulse Resp BP Pulse Ox 98.2 F 64 20 116/70 98 04/08/17 09:01 04/08/17 09:01 04/08/17 09:01 04/08/17 09:01 04/08/17 09:01 - Medications Medications: Current Medications Benzocaine/Menthol (Cepacol Sore Throat) 1 mir PO Q3 PRN PRN Reason: Sore Throat Last Admin: 04/08/17 09:21 Dose: 1 mir Enoxaparin Sodium (Lovenox) 40 mg SC DAILY [facility] PRN Reason: Protocol Last Admin: 04/08/17 09:21 Dose: 40 mg Ergocalciferol (Drisdol 50,000 Intl Units Cap) 1 cap PO FR [facility] Last Admin: 04/06/17 17:15 Dose: Not Given Ketorolac Tromethamine (Toradol) 15 mg IVP Q6 PRN PRN Reason: Pain, moderate (4-7) Last Admin: 04/06/17 20:03 Dose: 15 mg - Labs Labs: PT 11.6 Seconds (9.8-13.1) 04/06/17 08:49 INR 1.1 (0.9-1.2) 04/06/17 08:49 APTT 28.9 Seconds (25.6-37.1) 04/06/17 08:49 - Constitutional Appears: Well - Eye Exam Eye Exam: EOMI, Normal appearance, PERRL - ENT Exam ENT Exam: Mucous Membranes Moist, Normal Exam - Neck Exam Neck Exam: Full ROM, Normal Inspection. absent: Lymphadenopathy - Respiratory Exam Respiratory Exam: Clear to Ausculation Bilateral, NORMAL BREATHING PATTERN - Cardiovascular Exam Cardiovascular Exam: REGULAR RHYTHM, +S1, +S2. absent: Murmur - GI/Abdominal Exam GI & Abdominal Exam: Soft, Normal Bowel Sounds. absent: Tenderness - Extremities Exam Extremities Exam: Full ROM - Neurological Exam Neurological Exam: Alert, Awake, CN II-XII Intact, Normal Gait, Oriented x3 - Psychiatric Exam Psychiatric exam: Normal Affect, Normal Mood - Skin Skin Exam: Dry, Intact, Normal Color, Warm Assessment and Plan - Assessment and Plan (Free Text) Assessment: 41 year old female with history of Pre-Diabetes, Hyperlipidemia, Obesity, prior varicose vein stripping complicated by B/L PE 08/2014 on aspirin presenting with chest pain. Active treatment of odynophagia to solids and liquids. No prior EGD or colonoscopy. Plan: - cardiology input noted - Negative study for PE and cardiac work up - Continue clear liquid diet - Continue PPI in daily - NPO past midnight - EGD in am - Barium esophagogram pending - Motility vs mucosal esophageal pathology to be rule out
[2017-04-09 07:06] LABS: BASO % 0.7 % (0.0-2.0); EOS # 0.1 K/uL (0.0-0.7); EOS % 2.3 % (0.0-4.0); HEMATOCRIT 35.7 % (34.0-47.0); LYMPH # 1.6 K/uL (1.0-4.3); LYMPH % 26.8 % (20.0-40.0); MEAN CELL VOLUME 82.1 fl (81.0-99.0); MEAN CORPUSCULAR HEMOGLOBIN 26.7 pg (27.0-31.0); MEAN CORPUSCULAR HGB CONC 32.5 g/dL (33.0-37.0); MEAN PLATELET VOLUME 9.5 fl (7.2-11.7); MONO # 0.5 K/uL (0.0-0.8); MONO % 8.6 % (0.0-10.0); NEUT # 3.6 K/uL (1.8-7.0); NEUT % 61.6 % (50.0-75.0); NRBC % 0.1 % (0.0-0.0); RED CELL DISTRIBUTION WIDTH 15.9 % (11.5-14.5); WHITE BLOOD COUNT 5.8 K/uL (4.8-10.8)
[2017-04-09 07:35] LABS: ALB/GLOB RATIO 1.2 (1.0-2.1); ALKALINE PHOSPHATASE 43 U/L (38-126); ALT/SGPT 36 U/L (9-52); AST/SGOT 31 U/L (14-36); BILIRUBIN,TOTAL 0.6 mg/dl (0.2-1.3); BLOOD UREA NITROGEN 9 mg/dl (7-17); CALCIUM 8.8 mg/dL (8.4-10.2); CARBON DIOXIDE 25 mmol/L (22-30); CHLORIDE 107 mmol/L (98-107); GFR AFRICAN-AMERICAN > 60; GLUCOSE,RANDOM 89 mg/dL (65-105); POTASSIUM 4.2 MMOL/L (3.6-5.0); SODIUM 140 mmol/l (132-148); TOTAL PROTEIN 6.7 G/DL (6.3-8.2)
--- NOTE | 2017-04-09 09:16 | HP ---
CHIEF COMPLAINT: Chest pain. HISTORY OF PRESENT ILLNESS: This is a 41-year-old female, known case of history of pulmonary embolism, who was having chest pain, so the patient was brought to the emergency room and was admitted for further management. REVIEW OF SYSTEMS: Positive for chest pain, although at this time, the patient denies any chest pain. Review of systems is otherwise negative for headache, dizziness, syncope, loss of consciousness, shortness of breath, nausea, vomiting, diarrhea, constipation, anemia, joints or extremity pain. Review of systems is positive for stomach upset. Review of systems of all other organ systems is unremarkable. PAST MEDICAL HISTORY: Significant for history of pulmonary embolism and moderate obesity. PAST SURGICAL HISTORY: Unremarkable. PERSONAL HISTORY: The patient is currently nonsmoker and nondrinker. No substance abuse. MEDICATIONS: The patient is on medications as per reconciliation sheet which were reviewed and ordered. ALLERGIES: The patient is not allergic to any medications. FAMILY HISTORY: Noncontributory. PHYSICAL EXAMINATION: GENERAL: Well-developed well-nourished 41-year-old obese female, in no acute distress. VITAL SIGNS: Temperature afebrile, pulse 70, respirations 18, blood pressure 125/75. HEENT: Pupils reacting to light. No nystagmus. Normocephalic, atraumatic scalp. NECK: No JVD. No thyromegaly. No lymphadenopathy. HEART: S1 and S2 normal, regular. No significant murmur, gallop, or rub is heard. LUNGS: Showed good bilateral air exchange. No rales or rhonchi. ABDOMEN: Soft, nontender. No organomegaly. No fluid. Bowel sounds are plus. EXTREMITIES: No edema. No calf swelling. No tenderness. No acute ischemia. BREAKER OFF: The patient is alert, awake, oriented x3. There is no sign of any acute gross focal motor or sensory neurologic deficits. DIAGNOSTIC DATA: Available diagnostic data reviewed. LABORATORY DATA: Laboratory findings are acceptable. Troponin so far is negative. CTA of lung is negative for visible thrombus. Chest x-ray is clear. EKG does not reveal any acute ST-T changes. Cardiology consult noted and appreciated. ADMITTING IMPRESSION: Chest pain, rule out coronary artery disease and acute myocardial infarction, history of pulmonary embolism, morbid obesity. PLAN: As ordered. Case and plan discussed with the patient. Ten Walters MD [facility] # [id number]
--- NOTE | 2017-04-09 09:19 | PN ---
DATE: 04/09/2017 SUBJECTIVE: The patient seen and examined. Interim events noted. Consults noted and appreciated. Gastroenterology followup and intervention noted and appreciated. The patient needs followup endoscopy today. The patient has no specific complaint. No chest pain. No shortness of breath. PHYSICAL EXAMINATION GENERAL: The patient is in no acute distress. VITAL SIGNS: Stable. HEART: S1 and S2 normal, regular. LUNGS: Clear, bilateral air exchange. ABDOMEN: Soft and nontender. EXTREMITIES: No edema. No calf swelling. No tenderness. No acute ischemia. CENTRAL NERVOUS SYSTEM: Essentially unchanged. DIAGNOSTIC DATA: Available diagnostic data reviewed. Overall, the patient's general medical condition is stable. PLAN: As ordered. Ten Walters MD
[2017-04-09] MEDS: Enoxaparin 40 mg Syringe SC SCH (09:32)
[2017-04-09] MEDS ORDERED: Barium Sulfate for Susp 98% w/w 340g Bottle ONE (09:43)
[2017-04-09] MEDS ORDERED: Barium Sulfate Susp 0.1% w/v, 0.1% w/w 450 mL Bottle PO ONE (09:43)
[2017-04-09] MEDS ORDERED: Dextrose 5%/0.9% NS 1,000 ML IV SCH (11:00)
[2017-04-09] MEDS ORDERED: Propofol 10 mg/ml Inj (20 ML) ONE (13:53)
[2017-04-09] MEDS ORDERED: Dextrose 5%/0.9% NS 1,000 ML IV ONE ×2 (13:53→14:23)
[2017-04-09 14:33] VITALS: RESP 16
--- NOTE | 2017-04-09 15:15 | CP.PCM.PCO ---
Physician Communication Note - Physician Communication Note Physician Communication Note: EGD done. Can be discharged on PPI bid. Gastric & esophageal ulcers s/p bx
--- NOTE | 2017-04-09 15:39 | RAD ---
HISTORY: Dysphagia and odynophagia. COMPARISON: None. TECHNIQUE: Esophagram was performed under fluoroscopic control using single and double contrast technique. FINDINGS: Patient tolerated procedure well. ESOPHAGUS: Esophageal mucosa appeared preserved. No evidence of stricture or mass lesion. No constricting mass or obstructing lesion identified throughout the esophagus. No evidence to suggest esophagitis. HIATAL HERNIA: None demonstrated. GASTROESOPHAGEAL REFLUX: Not demonstrated. OTHER FINDINGS: 1.4 minutes of fluoroscopy time was utilized. IMPRESSION: Unremarkable esophagram.
[2017-04-09 16:07] VITALS: BP 119/78; PULSE 69; TEMP 98.4; O2SAT 96
== END 2017-04-09 16:35 | disposition home or self-care (01) | DRG 176 ==
LOC: H.ER 07:53 → OBSVTOIN 12:19 → H.ERHOLD 12:19 → H.TEL 14:49
PROVIDERS: ADMIT Internal Medicine; ATTEND Internal Medicine
PROC: 0DB78ZX Excision of Stomach, Pylorus, Via Natural or Artificial Opening Endoscopic, Diagnostic (ICD-10-PCS; 2017-04-09)
PROC: 0DB28ZX Excision of Middle Esophagus, Via Natural or Artificial Opening Endoscopic, Diagnostic (ICD-10-PCS; 2017-04-09)
PROC: 0DB38ZX Excision of Lower Esophagus, Via Natural or Artificial Opening Endoscopic, Diagnostic (ICD-10-PCS; principal; 2017-04-09 14:45)
DX: K22.10 Ulcer of esophagus without bleeding (principal); E66.01 Morbid (severe) obesity due to excess calories; K25.9 Gastric ulcer, unspecified as acute or chronic, without hemorrhage or perforation; K44.9 Diaphragmatic hernia without obstruction or gangrene; K29.50 Unspecified chronic gastritis without bleeding; D64.9 Anemia, unspecified; E78.5 Hyperlipidemia, unspecified; R07.89 Other chest pain; I51.7 Cardiomegaly; R94.31 Abnormal electrocardiogram [ECG] [EKG]; R73.03 Prediabetes; Z68.32 Body mass index [BMI] 32.0-32.9, adult; Z86.711 Personal history of pulmonary embolism; Z88.6 Allergy status to analgesic agent; Z79.82 Long term (current) use of aspirin; Z82.49 Family history of ischemic heart disease and other diseases of the circulatory system

== ENCOUNTER 2017-09-15 10:10 | Emergency (ER) | payer OTHER ==
[2017-09-15 11:05] VITALS: BMI 35.9
[2017-09-15 12:32] LABS: BASO % 0.4 % (0.0-2.0); EOS # 0.1 K/uL (0.0-0.7); EOS % 1.3 % (0.0-4.0); HEMOGLOBIN 11.2 g/dL (12.0-16.0); LYMPH % 26.8 % (20.0-40.0); MEAN CELL VOLUME 79.4 fl (81.0-99.0); MEAN CORPUSCULAR HEMOGLOBIN 25.4 pg (27.0-31.0); MEAN CORPUSCULAR HGB CONC 31.9 g/dL (33.0-37.0); MEAN PLATELET VOLUME 8.9 fl (7.2-11.7); MONO # 0.6 K/uL (0.0-0.8); MONO % 7.5 % (0.0-10.0); NEUT # 4.9 K/uL (1.8-7.0); RBC 4.41 Mil/uL (3.80-5.20); RED CELL DISTRIBUTION WIDTH 15.9 % (11.5-14.5); WHITE BLOOD COUNT 7.6 K/uL (4.8-10.8)
[2017-09-15 12:36] LABS: ALB/GLOB RATIO 1.2 (1.0-2.1); ALBUMIN 4.1 g/dL (3.5-5.0); ALT/SGPT 28 U/L (9-52); AST/SGOT 27 U/L (14-36); BLOOD UREA NITROGEN 9 mg/dl (7-17); CALCIUM 9.4 mg/dL (8.4-10.2); GFR AFRICAN-AMERICAN > 60; GFR NON-AFRICAN AMERICAN > 60
[2017-09-15 13:06] LABS: SQUAMOUS EPITHIAL 1 /hpf (0-5); URINE BILIRUBIN NEGATIVE (NEGATIVE); URINE BLOOD NEGATIVE (NEGATIVE); URINE CLARITY CLEAR (Clear); URINE COLOR STRAW (YELLOW); URINE GLUCOSE (UA) NEG (Normal); URINE LEUKOCYTE ESTERASE NEG Leu/uL (Negative); URINE NITRATE NEGATIVE (NEGATIVE); URINE PROTEIN NEGATIVE (NEGATIVE); URINE UROBILINOGEN 0.2-1.0 mg/dL (0.2-1.0)
--- NOTE | 2017-09-15 13:36 | ED PDOC ---
HPI: Abdomen Time Seen by Provider: 09/15/17 10:18 Chief Complaint (Nursing): Abdominal Pain Chief Complaint (Provider): Abdominal pain x 8 months Additional Complaint(s): 42 yo female, PMH of PE and DM, came in c/o abd pain and migel flank pain upon urination, usually at night, for 8 months was seen by pmd but symptoms persist. c/o dysuria and hematuria. Past Medical History Reviewed: Nursing Documentation, Vital Signs - Medical History PMH: Anemia, Diabetes ("Pre-Diabetic" (Not taking medications)), Pulmonary Embolism Denies: Chronic Kidney Disease - Surgical History Surgical History: (x3) - Family History Family History: States: Unknown Family Hx - Living Arrangements Living Arrangements: With Family - Social History Current smoker - smoking cessation education provided: No Ex-Smoker (has not smoked in the last 12 months): No Alcohol: None Drugs: Denies - Home Medications Home Medications: Ambulatory Orders Medication Instructions Recorded Ergocalciferol (Vitamin D2) 50,000 unit PO FR 04/06/17 [Vitamin D2] Ergocalciferol [Drisdol 50,000 1 cap PO FR cap 04/09/17 Intl Units Cap] Esomeprazole Magnesium [Nexium] 40 mg PO BID #60 ecc 04/09/17 Ciprofloxacin [Cipro] 500 mg PO BID #6 tab 09/15/17 Phenazopyridine HCl [Pyridium] 100 mg PO TID #6 tab 09/15/17 - Allergies Allergies/Adverse Reactions: Allergies Allergy/AdvReac Type Severity Reaction Status Date / Time morphine Allergy DIZZINESS Verified 05/27/16 19:31 Review of Systems ROS Statement: Except As Marked, All Systems Reviewed And Found Negative Gastrointestinal: Positive for: Abdominal Pain Genitourinary Female: Positive for: Dysuria, Hematuria Physical Exam - Reviewed Nursing Documentation Reviewed: Yes Vital Signs Reviewed: Yes - Physical Exam Appears: Positive for: Well, Non-toxic, No Acute Distress Head Exam: Positive for: ATRAUMATIC, NORMAL INSPECTION, NORMOCEPHALIC Skin: Positive for: Normal Color, Warm, DRY Eye Exam: Positive for: EOMI, Normal appearance, PERRL ENT: Positive for: Normal ENT Inspection Neck: Positive for: Normal, Painless ROM Cardiovascular/Chest: Positive for: Regular Rate, Rhythm Respiratory: Positive for: CNT, Normal Breath Sounds Gastrointestinal/Abdominal: Positive for: Normal Exam, Bowel Sounds, Soft. Negative for: Tenderness Back: Positive for: Normal Inspection. Negative for: L CVA Tenderness, R CVA Tenderness Extremity: Positive for: Normal ROM Neurologic/Psych: Positive for: Alert, Oriented - Laboratory Results Result Diagrams: 09/15/17 12:15 09/15/17 12:15 Medical Decision Making Medical Decision Making: Pt offers no abdominal pain complaints ta this time, reports the symptoms occur at night. analgesics withheld Labs resulted and reviewed with pt who demonstrated full understanding DIp (-) blood, nites or leuks. Do to clinical presentation of burning on urination and hematuria at night. Pt treated for UTI Advised to follow up with OB, return to ED with any concerns Disposition - Clinical Impression Clinical Impression: Abdominal pain in female - Patient ED Disposition Is Patient to be Admitted: No - Disposition Disposition: Routine/Home Disposition Time: 14:02 Condition: STABLE Prescriptions: Ciprofloxacin [Cipro] 500 mg PO BID #6 tab Phenazopyridine HCl [Pyridium] 100 mg PO TID #6 tab Instructions: Abdominal Pain (ED), Urinary Tract Infection in Women (ED) Forms: [employer] (Turkmen)
== END 2017-09-15 13:14 | disposition home or self-care (01) ==
LOC: H.ER 10:10
DX: R10.9 Unspecified abdominal pain (principal); R30.0 Dysuria; R73.03 Prediabetes

== ENCOUNTER 2017-10-31 11:50 | Emergency (ER) | payer OTHER ==
[2017-10-31 11:50] VITALS: BMI 35.9
[2017-10-31 12:10] VITALS: BP 116/69; PULSE 84; RESP 18; TEMP 98.1; O2SAT 99
--- NOTE | 2017-10-31 13:26 | ED PDOC ---
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 Also complains of intermittent lower abdominal pain for the past 2-3 weeks. Patient states she is currently being treated for overactive bladder, but is now urinating with even more frequently than usual. Associated with nausea, 2 episodes of NB, NB vomiting, and tactile fever yesterday. Currently she denies nausea. Otherwise: (-) dysuria (-) paresthesias, (-) weakness, (-) headache, (-) cough, (-) chest pain, (-) chills (-) SOB, (-) rash, (-) acute bowel or bladder dysfunction, (-) diarrhea, (-) vaginal bleeding or discharge. LMP was 10 days ago. PMD: [place] Past Medical History Reviewed: Historical Data, Nursing Documentation, Vital Signs Vital Signs: Last Vital Signs Temp 98.1 F 10/31/17 12:06 Pulse 84 10/31/17 12:06 Resp 18 10/31/17 12:06 BP 116/69 10/31/17 12:06 Pulse Ox 99 10/31/17 12:06 - Medical History PMH: Anemia, Diabetes ("Pre-Diabetic" (Not taking medications)), Pulmonary Embolism (3 years ago), Sexually Transmitted Disease (Chlamydia, Herpes) Denies: Kidney Stones, Chronic Kidney Disease Other PMH: Vitamin D deficiency - Surgical History Surgical History: (x3) - Family History Family History: States: Unknown Family Hx - Social History Current smoker - smoking cessation education provided: No Alcohol: None Drugs: Denies - Home Medications Home Medications: Ambulatory Orders Medication Instructions Recorded Ergocalciferol (Vitamin D2) 50,000 unit PO FR 04/06/17 [Vitamin D2] Ergocalciferol [Drisdol 50,000 1 cap PO FR cap 04/09/17 Intl Units Cap] Esomeprazole Magnesium [Nexium] 40 mg PO BID #60 ecc 04/09/17 Ciprofloxacin [Cipro] 500 mg PO BID #6 tab 09/15/17 Phenazopyridine HCl [Pyridium] 100 mg PO TID #6 tab 09/15/17 - Allergies Allergies/Adverse Reactions: Allergies Allergy/AdvReac Type Severity Reaction Status Date / Time morphine Allergy DIZZINESS Verified 10/31/17 12:03 Review of Systems ROS Statement: Except As Marked, All Systems Reviewed And Found Negative Constitutional: Positive for: Fever (tactile) Cardiovascular: Negative for: Chest Pain Respiratory: Negative for: Cough, Shortness of Breath Gastrointestinal: Positive for: Vomiting, Abdominal Pain. Negative for: Nausea , Diarrhea, Constipation Genitourinary Female: Positive for: Frequency. Negative for: Incontinence, Hematuria, Vaginal Discharge, Vaginal Bleeding Musculoskeletal: Positive for: Back Pain Skin: Negative for: Rash Neurological: Negative for: Weakness, Numbness, Headache Physical Exam - Reviewed Nursing Documentation Reviewed: Yes Vital Signs Reviewed: Yes - Physical Exam Comments: GENERAL APPEARANCE: Patient is awake, alert, oriented x 3, in no acute distress. Ambulatory in ED with steady gait. SKIN: Warm, dry; (-) cyanosis. EYES: (-) conjunctival pallor. ENMT: Mucous membranes moist. NECK: Supple, FROM (-) tenderness, (-) stiffness, (-) lymphadenopathy. CHEST AND RESPIRATORY: (-) rales, (-) rhonchi, (-) wheezes; breath sounds equal bilaterally. HEART AND CARDIOVASCULAR: (-) irregularity; (-) murmur, (-) gallop. ABDOMEN AND GI: Soft; (+) mild suprapubic tenderness (-) rebound (-) guarding ( -) distention (-) McBurney's point; (-) palpable mass. BACK: (+) Right CVA tenderness, (-) direct bony tenderness, (-) deformity. Straight leg raising (-) bilaterally. EXTREMITIES: (-) deformity. NEURO AND PSYCH: Mental status as above. Affect appropriate. - Laboratory Results Result Diagrams: 10/31/17 13:30 10/31/17 13:30 Urine POC: Negative Urine dip results: Positive for: Blood. Negative for: Leukocyte Esterase, Nitrate, Ketones, Glucose, Bilirubin - ECG O2 Sat by Pulse Oximetry: 99 (RA) Pulse Ox Interpretation: Normal Medical Decision Making Medical Decision Making: Initial Impression: Back/Flank Pain, Abdominal Pain Time: 13:23 Initial Plan: * Urine preg * Urine dip * CMP * Lipase * CBC * Toradol 30 mg IVP * IV fluids * Reevaluation U dip: Moderate blood, (-) leuks and nitrates Will order CT of abdomen/pelvis to rule out kidney stone 16:[address] read by radiology as below: FINDINGS: LOWER THORAX: Unremarkable. LIVER: Unremarkable. No gross lesion or ductal dilatation. GALLBLADDER AND BILE DUCTS: Unremarkable. PANCREAS: Unremarkable. No gross lesion or ductal dilatation. SPLEEN: Unremarkable. ADRENALS: Unremarkable. No mass. KIDNEYS AND URETERS: Unremarkable. No hydronephrosis. No solid mass. VASCULATURE: Unremarkable. No aortic aneurysm. BOWEL: Unremarkable. No obstruction. No gross mural thickening. APPENDIX: Unremarkable. Normal appendix. PERITONEUM: Unremarkable. No free fluid. No free air. LYMPH NODES: Unremarkable. No enlarged lymph nodes. BLADDER: Unremarkable. REPRODUCTIVE: The uterus is tipped towards the right side as before. The bilateral high adnexal/ ovarian status is renoted. The cystic changes within each adnexa is slightly smaller. The dominant cystic changes now are in the right adnexa currently measuring approximate 2.3 cm. The prior transvaginal ultrasound study referenced a simple right ovarian cyst measuring 2.3 cm. The prior transvaginal ultrasound also referenced fibroid which are not apparent on this exam. The relative prominence to the hypodense endometrial cavity is reproduced appearance with the prior CT prior endometrium referenced the thicken that 2.1 endometrium without any additional suspect pathological findings. The CT appearance here is unchanged with the 01/26/2017 image BONES: No acute fracture. OTHER FINDINGS: None. IMPRESSION: No renal ureteral or bladder calculi. No hydronephrosis. No hydroureter Right sided uterus -similar-appearing Prominent endometrial cavity -similar-appearing. Cell Room Supervisor correlation recommended High a bilateral adnexa/ovaries with similar benign-appearing cystic changes in the right ovary. 16:30 Discussed case with ED attending, Dr. Ortega who recommends outpatient follow up with urology and LINE ASSEMBLY UTILITY WORKER. No further emergency intervention is recommended at this time. 1700 On re-evaluation, patient reports improvement of symptoms, denies any additional complaints. Tolerating PO intake without difficulty. On exam, patient remains AAOx3, in no acute distress; neck is supple, lungs CTA, cardiac RRR, abdomen is soft and non-tender, neuro exam shows no focal findings. Diagnostic results d/w the patient in great detail. Based on history, exam and diagnostic results plan will be for discharge and outpatient follow up. Counseled patient regarding diagnosis and the need for follow up with urology and LINE ASSEMBLY UTILITY WORKER. Advised to follow up without fail. Return to the emergency room at any time for any new or worsening symptoms. Patient states she fully agrees with and understands discharge instructions. States that she agrees with the plan and disposition. Verbalized and repeated discharge instructions and plan. I have given the patient opportunity to ask any additional questions. Scribe Attestation: Documented by Jagruti High, acting as a scribe for Caren Painting PA-C Provider Scribe Attestation: All medical record entries made by the Scribe were at my direction and personally dictated by me. I have reviewed the chart and agree that the record accurately reflects my personal performance of the history, physical exam, medical decision making, and the department course for this patient. I have also personally directed, reviewed, and agree with the discharge instructions and disposition. Disposition - Clinical Impression Clinical Impression: Back pain, Urinary frequency, Abdominal pain, Ovarian cyst, Hematuria - Patient ED Disposition Is Patient to be Admitted: No Counseled Patient/Family Regarding: Studies Performed, Diagnosis, Need For Followup - Disposition Referrals: Katie Waldron MD [Medical Doctor[facility]] Disposition: Routine/Home Disposition Time: 17:15 Condition: STABLE Instructions: Ovarian Cysts, Low Back Pain in Adults, Acute Abdomen (Belly Pain ), Nausea and Vomiting, Adult Forms: [employer] (Divehi) Print Language: PALESTINIAN - POA Present On Arrival: None Results - Lab Results Lab Results: 10/31/17 10/31/17 10/31/17 14:20 13:30 13:30 WBC 6.9 RBC 4.44 Hgb 11.5 L Hct 34.6 MCV 77.8 L MCH 25.8 L MCHC 33.2 RDW 16.3 H Plt Count 340 MPV 8.9 Neut % (Auto) 66.2 Lymph % (Auto) 25.4 Chicot % (Auto) 6.9 Eos % (Auto) 1.2 Baso % (Auto) 0.3 Neut # (Auto) 4.6 Lymph # (Auto) 1.8 Chicot # (Auto) 0.5 Eos # (Auto) 0.1 Baso # (Auto) 0.0 Sodium 141 Potassium 4.5 Chloride 99 Carbon Dioxide 27 Anion Gap 20 BUN 11 Creatinine 0.7 Est GFR ( Amer) > 60 Est GFR (Non-Af Amer) > 60 Random Glucose 86 Calcium 9.7 Total Bilirubin 0.5 AST 39 H D ALT 32 Alkaline Phosphatase 54 Total Protein 7.8 Albumin 4.3 Globulin 3.5 Albumin/Globulin Ratio 1.2 Lipase 94 Urine Color Straw Urine Clarity Slighty-cloudy Urine pH 6.0 Ur Specific Anderson 1.006 Urine Protein 30 Urine Glucose (UA) Neg Urine Ketones Negative Urine Blood Moderate Urine Nitrate Negative Urine Bilirubin Negative Urine Urobilinogen 0.2-1.0 Ur Leukocyte Esterase Neg Urine RBC (Auto) 4 H Urine Microscopic WBC 1 Ur Squamous Epith Cells 3 Urine Bacteria Rare
[2017-10-31] MEDS ORDERED: Sodium Chloride 0.9% 1,000 ML IV SCH (13:30)
[2017-10-31 13:59] LABS: BASO % 0.3 % (0.0-2.0); EOS # 0.1 K/uL (0.0-0.7); EOS % 1.2 % (0.0-4.0); HEMOGLOBIN 11.5 g/dL (12.0-16.0); LYMPH # 1.8 K/uL (1.0-4.3); LYMPH % 25.4 % (20.0-40.0); MEAN CELL VOLUME 77.8 fl (81.0-99.0); MEAN CORPUSCULAR HEMOGLOBIN 25.8 pg (27.0-31.0); MEAN CORPUSCULAR HGB CONC 33.2 g/dL (33.0-37.0); MEAN PLATELET VOLUME 8.9 fl (7.2-11.7); MONO # 0.5 K/uL (0.0-0.8); MONO % 6.9 % (0.0-10.0); NEUT # 4.6 K/uL (1.8-7.0); NEUT % 66.2 % (50.0-75.0); NRBC % 0.1 % (0.0-0.0); RBC 4.44 Mil/uL (3.80-5.20); RED CELL DISTRIBUTION WIDTH 16.3 % (11.5-14.5); WHITE BLOOD COUNT 6.9 K/uL (4.8-10.8)
[2017-10-31 14:06] LABS: ALB/GLOB RATIO 1.2 (1.0-2.1); ALBUMIN 4.3 g/dL (3.5-5.0); ALT/SGPT 32 U/L (9-52); AST/SGOT 39 U/L (14-36); BLOOD UREA NITROGEN 11 mg/dl (7-17); CALCIUM 9.7 mg/dL (8.4-10.2); GFR AFRICAN-AMERICAN > 60; GFR NON-AFRICAN AMERICAN > 60; LIPASE 94 U/L (23-300)
[2017-10-31 14:48] LABS: SQUAMOUS EPITHIAL 3 /hpf (0-5); URINE BACTERIA RARE (<OCC); URINE BILIRUBIN NEGATIVE (NEGATIVE); URINE BLOOD MODERATE (NEGATIVE); URINE CLARITY SLIGHTY-CLOUDY (Clear); URINE COLOR STRAW (YELLOW); URINE GLUCOSE (UA) NEG (Normal); URINE LEUKOCYTE ESTERASE NEG Leu/uL (Negative); URINE PROTEIN 30 mg/dL (NEGATIVE); URINE UROBILINOGEN 0.2-1.0 mg/dL (0.2-1.0)
--- NOTE | 2017-10-31 16:04 | CT ---
PROCEDURE: CT Abdomen and Pelvis without intravenous contrast HISTORY: hematuria, flank pain COMPARISON: 01/26/2017 CT abdomen and pelvis with IV contrast. Transvaginal ultrasound 12/17/2014 TECHNIQUE: Technique. Contrast Dose: No IV or oral contrast Radiation dose: Total exam DLP = 1114 mGy-cm. This CT exam was performed using one or more of the following dose reduction techniques: Automated exposure control, adjustment of the mA and/or kV according to patient size, and/or use of iterative reconstruction technique. FINDINGS: LOWER THORAX: Unremarkable. LIVER: Unremarkable. No gross lesion or ductal dilatation. GALLBLADDER AND BILE DUCTS: Unremarkable. PANCREAS: Unremarkable. No gross lesion or ductal dilatation. SPLEEN: Unremarkable. ADRENALS: Unremarkable. No mass. KIDNEYS AND URETERS: Unremarkable. No hydronephrosis. No solid mass. VASCULATURE: Unremarkable. No aortic aneurysm. BOWEL: Unremarkable. No obstruction. No gross mural thickening. APPENDIX: Unremarkable. Normal appendix. PERITONEUM: Unremarkable. No free fluid. No free air. LYMPH NODES: Unremarkable. No enlarged lymph nodes. BLADDER: Unremarkable. REPRODUCTIVE: The uterus is tipped towards the right side as before. The bilateral high adnexal/ ovarian status is renoted. The cystic changes within each adnexa is slightly smaller. The dominant cystic changes now are in the right adnexa currently measuring approximate 2.3 cm. The prior transvaginal ultrasound study referenced a simple right ovarian cyst measuring 2.3 cm. The prior transvaginal ultrasound also referenced fibroid which are not apparent on this exam. The relative prominence to the hypodense endometrial cavity is reproduced appearance with the prior CT prior endometrium referenced the thicken that 2.1 endometrium without any additional suspect pathological findings. The CT appearance here is unchanged with the 01/26/2017 image BONES: No acute fracture. OTHER FINDINGS: None. IMPRESSION: No renal ureteral or bladder calculi. No hydronephrosis. No hydroureter Right sided uterus -similar-appearing Prominent endometrial cavity -similar-appearing. Bookkeeping Service Sales Agent correlation recommended High a bilateral adnexa/ovaries with similar benign-appearing cystic changes in the right ovary.
== END 2017-10-31 17:21 | disposition home or self-care (01) ==
LOC: H.ER 11:50
DX: N83.209 Unspecified ovarian cyst, unspecified side (principal); N32.81 Overactive bladder; R31.9 Hematuria, unspecified; E55.9 Vitamin D deficiency, unspecified; R73.03 Prediabetes
CPT/HCPCS: 74176; 80053; 81003; 81025; 83690; 85025; 96374; 99283; J1885; J7040

== ENCOUNTER 2018-11-23 13:45 | Emergency (ER) | payer OTHER ==
[2018-11-23 13:45] VITALS: BMI 35.9
[2018-11-23] MEDS: Sodium Chloride 0.9% 1,000 ML IV SCH ×2 (16:22→20:36)
[2018-11-23 16:50] LABS: BASO # 0.1 K/uL (0.0-0.2); BASO % 0.8 % (0.0-2.0); EOS # 0.2 K/uL (0.0-0.7); EOS % 1.9 % (0.0-4.0); HEMOGLOBIN 11.6 g/dL (12.0-16.0); LYMPH # 1.5 K/uL (1.0-4.3); LYMPH % 18.5 % (20.0-40.0); MEAN CORPUSCULAR HEMOGLOBIN 28.9 pg (27.0-31.0); MEAN CORPUSCULAR HGB CONC 33.7 g/dL (33.0-37.0); MEAN PLATELET VOLUME 9.5 fl (7.2-11.7); MONO # 0.6 K/uL (0.0-0.8); MONO % 7.3 % (0.0-10.0); NEUT # 5.9 K/uL (1.8-7.0); NEUT % 71.5 % (50.0-75.0); NRBC % 0.2 % (0.0-0.0); RBC 4.01 Mil/uL (3.80-5.20); RED CELL DISTRIBUTION WIDTH 14.6 % (11.5-14.5); WHITE BLOOD COUNT 8.2 K/uL (4.8-10.8)
[2018-11-23 16:52] LABS: MEAN CELL VOLUME 85.8 fl (81.0-99.0)
[2018-11-23 16:55] LABS: ALB/GLOB RATIO 1.3 (1.0-2.1); ALBUMIN 3.8 g/dL (3.5-5.0); ALT/SGPT 24 U/L (9-52); AST/SGOT 33 U/L (14-36); BLOOD UREA NITROGEN 15 mg/dl (7-17); CALCIUM 8.8 mg/dL (8.4-10.2); GFR NON-AFRICAN AMERICAN > 60; LIPASE 143 U/L (23-300)
--- NOTE | 2018-11-23 16:57 | RAD ---
Date of service: 11/23/2018 HISTORY: EPIGASTRIC PAIN COMPARISON: Chest radiographs 12/15/2015. TECHNIQUE: Chest PA and lateral views FINDINGS: LUNGS: No active pulmonary disease. PLEURA: No significant pleural effusion identified. No pneumothorax apparent. CARDIOVASCULAR: No aortic atherosclerotic calcification present. Normal cardiac size. No pulmonary vascular congestion. OSSEOUS STRUCTURES: No significant abnormalities. VISUALIZED UPPER ABDOMEN: Normal. OTHER FINDINGS: None. IMPRESSION: No interval acute cardiopulmonary disease appreciated.
--- NOTE | 2018-11-23 17:05 | ED PDOC ---
HPI: Abdomen Chief Complaint (Nursing): Abdominal Pain Past Medical History Vital Signs: Last Vital Signs Temp 97.6 F 11/23/18 13:49 Pulse 86 11/23/18 13:49 Resp 20 11/23/18 13:49 BP 103/74 11/23/18 13:49 Pulse Ox 99 11/23/18 13:49 - Medical History PMH: Anemia, Diabetes ("Pre-Diabetic" (Not taking medications)), Pulmonary Embolism (3 years ago), Sexually Transmitted Disease (Chlamydia, Herpes) Denies: Kidney Stones, Chronic Kidney Disease - Surgical History Surgical History: (x3) - Family History Family History: States: Unknown Family Hx - Home Medications Home Medications: Ambulatory Orders Medication Instructions Recorded Ergocalciferol (Vitamin D2) 50,000 unit PO FR 04/06/17 [Vitamin D2] Ergocalciferol [Drisdol 50,000 1 cap PO FR cap 04/09/17 Intl Units Cap] Esomeprazole Magnesium [Nexium] 40 mg PO BID #60 ecc 04/09/17 Ciprofloxacin [Cipro] 500 mg PO BID #6 tab 09/15/17 Phenazopyridine HCl [Pyridium] 100 mg PO TID #6 tab 09/15/17 Nitrofurantoin Monohyd/M-Cryst 100 mg PO BID #10 capsule 11/23/18 [Macrobid 100 mg Capsule] - Allergies Allergies/Adverse Reactions: Allergies Allergy/AdvReac Type Severity Reaction Status Date / Time morphine Allergy DIZZINESS Verified 11/23/18 13:48 oxybutinin Allergy ANAPHYLAXIS Uncoded 11/23/18 13:54 - Laboratory Results Result Diagrams: 11/23/18 16:37 11/23/18 16:37 Lab Results: Total Bilirubin 0.3 mg/dl (0.2-1.3) 11/23/18 16:37 AST 33 U/L (14-36) 11/23/18 16:37 ALT 24 U/L (9-52) 11/23/18 16:37 Alkaline Phosphatase 47 U/L (38-126) 11/23/18 16:37 Total Protein 6.8 G/DL (6.3-8.2) 11/23/18 16:37 Albumin 3.8 g/dL (3.5-5.0) 11/23/18 16:37 Globulin 3.0 gm/dL (2.2-3.9) 11/23/18 16:37 Albumin/Globulin Ratio 1.3 (1.0-2.1) 11/23/18 16:37 Lipase 143 U/L (23-300) 11/23/18 16:37 - ECG O2 Sat by Pulse Oximetry: 99 Medical Decision Making Medical Decision Makin:53 XRAY CHEST READ AND REVIEWED BY RADIOLOGIST FINDINGS: LUNGS: No active pulmonary disease. PLEURA: No significant pleural effusion identified. No pneumothorax apparent. CARDIOVASCULAR: No aortic atherosclerotic calcification present. Normal cardiac size. No pulmonary vascular congestion. OSSEOUS STRUCTURES: No significant abnormalities. VISUALIZED UPPER ABDOMEN: Normal. OTHER FINDINGS: None. IMPRESSION: No interval acute cardiopulmonary disease appreciated. Disposition - Clinical Impression Clinical Impression: Urinary tract infection - Disposition Prescriptions: Nitrofurantoin Monohyd/M-Cryst [Macrobid 100 mg Capsule] 100 mg PO BID #10 capsule Forms: [employer] (Paraguayan) Print Language: MALAYSIAN
--- NOTE | 2018-11-23 17:06 | ED PDOC ---
HPI: Abdomen Time Seen by Provider: 11/23/18 16:30 Chief Complaint (Nursing): Abdominal Pain Chief Complaint (Provider): ABD PAIN History Per: Patient History/Exam Limitations: no limitations Onset/Duration Of Symptoms: Days Outside of [place] travel?: No Current Symptoms Are (Timing): Still Present Severity: Moderate Pain Scale Rating Of: 7 Location Of Pain/Discomfort: RUQ, Epigastric Quality Of Discomfort: "Pain" Associated Symptoms: Fever, Chills, Nausea, Vomiting, Diarrhea, Back Pain. denies: Loss Of Appetite, Constipation Exacerbating Factors: Supine, Food Alleviating Factors: None Additional History Per: Patient Additional Complaint(s): 43 Y/O FEMALE C/O RUQ PAIN RAD TO RIGHT FLANK FOR 3 DAYS. PT REPORTS PAIN WORSE AT NIGHT WITH ASSOCIATED CHILLS, NAUSEA,VOMITING. PATIENT REPORTS SHE TOOK MOTRIN 600MG PO AT 12PM TODAY. PATIENT DENIES URINARY COMPLAINTS, CHEST PAIN AND SOB. Past Medical History Reviewed: Historical Data, Nursing Documentation, Vital Signs Vital Signs: Last Vital Signs Temp 97.6 F 11/23/18 13:49 Pulse 86 11/23/18 13:49 Resp 20 11/23/18 13:49 BP 103/74 11/23/18 13:49 Pulse Ox 99 11/23/18 13:49 - Medical History PMH: Anemia, Diabetes ("Pre-Diabetic" (Not taking medications)), Pulmonary Embolism (3 years ago), Sexually Transmitted Disease (Chlamydia, Herpes) Denies: Kidney Stones, Chronic Kidney Disease - Surgical History Surgical History: (x3) - Family History Family History: States: Unknown Family Hx - Social History Alcohol: None Drugs: Denies - Home Medications Home Medications: Ambulatory Orders Medication Instructions Recorded Ergocalciferol (Vitamin D2) 50,000 unit PO FR 04/06/17 [Vitamin D2] Ergocalciferol [Drisdol 50,000 1 cap PO FR cap 04/09/17 Intl Units Cap] Esomeprazole Magnesium [Nexium] 40 mg PO BID #60 ecc 04/09/17 Ciprofloxacin [Cipro] 500 mg PO BID #6 tab 09/15/17 Phenazopyridine HCl [Pyridium] 100 mg PO TID #6 tab 09/15/17 Nitrofurantoin Monohyd/M-Cryst 100 mg PO BID #10 capsule 11/23/18 [Macrobid 100 mg Capsule] - Allergies Allergies/Adverse Reactions: Allergies Allergy/AdvReac Type Severity Reaction Status Date / Time morphine Allergy DIZZINESS Verified 11/23/18 13:48 oxybutinin Allergy ANAPHYLAXIS Uncoded 11/23/18 13:54 Review of Systems ROS Statement: Except As Marked, All Systems Reviewed And Found Negative Constitutional: Positive for: Chills, Malaise Gastrointestinal: Positive for: Nausea, Vomiting, Abdominal Pain, Diarrhea Genitourinary Female: Negative for: Dysuria, Hematuria, Vaginal Discharge, Vaginal Bleeding Skin: Negative for: Rash Physical Exam - Reviewed Nursing Documentation Reviewed: Yes Vital Signs Reviewed: Yes - Physical Exam Appears: Positive for: Well, Non-toxic, No Acute Distress Head Exam: Positive for: ATRAUMATIC, NORMAL INSPECTION, NORMOCEPHALIC Skin: Positive for: Normal Color, Warm, DRY Eye Exam: Positive for: EOMI, Normal appearance, PERRL ENT: Positive for: Normal ENT Inspection Neck: Positive for: Normal, Painless ROM, Supple Cardiovascular/Chest: Positive for: Regular Rate, Rhythm Respiratory: Positive for: CNT, Normal Breath Sounds Gastrointestinal/Abdominal: Positive for: Normal Exam, Bowel Sounds, Soft, Tenderness (RUQ/EPIGATRIC ). Negative for: Mass, Distended, Guarding Back: Positive for: Normal Inspection. Negative for: L CVA Tenderness, R CVA Tenderness Extremity: Positive for: Normal ROM Neurological/Psych: Positive for: Awake, Alert, Normal Tone, Oriented - Laboratory Results Result Diagrams: 11/23/18 16:37 11/23/18 16:37 Lab Results: Total Bilirubin 0.3 mg/dl (0.2-1.3) 11/23/18 16:37 AST 33 U/L (14-36) 11/23/18 16:37 ALT 24 U/L (9-52) 11/23/18 16:37 Alkaline Phosphatase 47 U/L (38-126) 11/23/18 16:37 Total Protein 6.8 G/DL (6.3-8.2) 11/23/18 16:37 Albumin 3.8 g/dL (3.5-5.0) 11/23/18 16:37 Globulin 3.0 gm/dL (2.2-3.9) 11/23/18 16:37 Albumin/Globulin Ratio 1.3 (1.0-2.1) 11/23/18 16:37 Lipase 143 U/L (23-300) 11/23/18 16:37 Urine POC: Negative Urine dip results: Positive for: Leukocyte Esterase (SMALL), Blood (LARGE BLOOD, PATIENT STATES SHES ON HER MENSES. STARTED YESTERDAY) - ECG O2 Sat by Pulse Oximetry: 99 Pulse Ox Interpretation: Normal - Radiology X-Ray: Read By Radiologist X-Ray Interpretation: No Acute Disease - Progress ED Course And Treament: CBC CMP TROPONIN LIPASE UA UPREG 0.9NS PEPCID 20MG IV US ABD RUQ CXR EKG 19:30: PT RETURNED FROM US, PATIENT REPORTS PAIN HAS IMPROVED. PENDING US RE PORT. 2030: PATIENT ENDORSED TO JERED CUELLO PENDING US REPORT. LABS REVIEWED BY ME, URINALYSIS: +LUEKS, WBC COUNT, IMPRESSION: UTI Medical Decision Making Medical Decision Makin:53 XRAY CHEST READ AND REVIEWED BY RADIOLOGIST FINDINGS: LUNGS: No active pulmonary disease. PLEURA: No significant pleural effusion identified. No pneumothorax apparent. CARDIOVASCULAR: No aortic atherosclerotic calcification present. Normal cardiac size. No pulmonary vascular congestion. OSSEOUS STRUCTURES: No significant abnormalities. VISUALIZED UPPER ABDOMEN: Normal. OTHER FINDINGS: None. IMPRESSION: No interval acute cardiopulmonary disease appreciated. Disposition - Clinical Impression Clinical Impression: Urinary tract infection - Disposition Disposition: Routine/Home Disposition Time: 20:00 Condition: IMPROVED Prescriptions: Nitrofurantoin Monohyd/M-Cryst [Macrobid 100 mg Capsule] 100 mg PO BID #10 capsule Forms: [employer] (Ugandan) Print Language: CAMBODIAN - POA Present On Arrival: None
[2018-11-23 18:57] LABS: URINE BACTERIA RARE (<OCC); URINE BILIRUBIN NEGATIVE (NEGATIVE); URINE BLOOD LARGE (NEGATIVE); URINE CLARITY CLOUDY (Clear); URINE COLOR YELLOW (YELLOW); URINE GLUCOSE (UA) NEG (NEGATIVE); URINE LEUKOCYTE ESTERASE LARGE Leu/uL (Negative); URINE PROTEIN 100 mg/dL (NEGATIVE); URINE UROBILINOGEN 0.2-1.0 mg/dL (0.2-1.0)
[2018-11-24 02:56] VITALS: BP 112/76; PULSE 80; RESP 18; TEMP 98; O2SAT 100
--- NOTE | 2018-11-24 10:24 | CARD ---
APPROVED REPORT Date of service: 11/23/2018 EKG Measurement Heart [id number] <Conclusion> Normal sinus rhythm Normal ECG
--- NOTE | 2018-11-24 11:04 | US ---
Date of service: 11/23/2018 HISTORY: ABD PAIN COMPARISON: CT abdomen and pelvis without contrast performed 10/31/17 TECHNIQUE: Sonographic evaluation of the right upper quadrant of the abdomen. FINDINGS: LIVER: Measures approximately 15 cm in length and appears within normal limits of shape in echotexture. No focal hepatic mass identified. The main portal vein appears patent with normal directional flow. No intrahepatic bile duct dilatation. GALLBLADDER: Contracted. No gallstones. No gallbladder wall thickening or pericholecystic edema. Negative sonographic Bass's sign as assessed by the apprentice/lineman. COMMON BILE DUCT: Measures 7 mm. PANCREAS: Not well-visualized. RIGHT KIDNEY: Measures approximately 9.2 x 5.3 x 4.5 cm. No obstructing calculus or hydronephrosis. AORTA: Limited visualization appears grossly unremarkable. IVC: Limited visualization appears grossly unremarkable. OTHER FINDINGS: None . IMPRESSION: Mildly dilated common bile duct.Contracted state of gallbladder limits evaluation. Otherwise unremarkable. Preliminary impression was provided by Mo[place].
== END 2018-11-23 20:59 | disposition home or self-care (01) ==
LOC: H.ER 13:45
DX: N39.0 Urinary tract infection, site not specified (principal); R73.03 Prediabetes; Z86.711 Personal history of pulmonary embolism
CPT/HCPCS: 71046; 76705; 80053; 81003; 81025; 83690; 84484; 85025; 93005; 96361; 96374; 99285; J7030